=== PATIENT | female | born 1985 | race Caucasian/White ===

== ENCOUNTER 2016-11-11 12:36 | Emergency (ER) | payer OTHER ==
[~2016-11-11] VITALS: Ht 157.5 cm; Wt 68.9 kg
[~2016-11-11 12:36] MED LIST: /MOM400 GT; /ONDA4TA JT; ACET50TA PO; ANUS2.5C2 EXT; DOCU10ELUD PO; IBUP600T26 PO; MOM30SS PO; NASA55AE; PRENTAB74 PO; ROBISYP3 PO; SUDA30TA PO
[2016-11-11] MEDS ORDERED: traMADol 50 MG TAB PO ONE (15:00)
--- NOTE | 2016-11-11 16:17 | REP ---
LUMBAR SPINE COMPLETE: 11/11/2016. Comparison: CT abdomen and pelvis without contrast at [facility], 11/10/2016. Clinical history: Left flank pain for the past 3 days. Findings: Five views are provided. There is no scoliosis. Pedicles, spinous and transverse processes intact. SI joints, sacral ala and foramina unremarkable. Lower thoracic levels and visualized ribs intact. Facet arthropathy at L5-S1 is mild bilaterally. There is no spondylolysis or spondylolisthesis. Lateral view shows disc space narrowed at L5-S1. The other disc space heights are maintained. All vertebral body heights are maintained. Loss of lordosis is seen, which may reflect spasm. Impression: 1. Straightening of the spine may reflect some spasm, but there is no visible or displaced fracture, compression deformity, spondylolysis or spondylolisthesis. 2. Minor degenerative disc changes with slight disc space narrowing and marginal osteophytes at L5-S1. Signed by Jeremy Cartagena MD 11/11/2016 07:08 P
[2016-11-11] MEDS ORDERED: CYCL5TAB PO (16:24)
[2016-11-11] MEDS ORDERED: TRAM50TA2 PO (16:24)
[2016-11-11 16:25] VITALS: BP 129/67
== END 2016-11-11 16:31 | disposition home or self-care (01) ==
LOC: M ED 12:36
DX: M51.36 Other intervertebral disc degeneration, lumbar region (principal); G43.909 Migraine, unspecified, not intractable, without status migrainosus; F17.210 Nicotine dependence, cigarettes, uncomplicated

== ENCOUNTER → 2017-02-23 | Outpatient (CLI) | payer OTHER ==
[~2017-02-23] MED LIST changes: +CYCL5TAB PO; +TRAM50TA2 PO
--- NOTE | 2017-02-23 13:05 | REP ---
Clinical: Acute pharyngitis . Comparison: 01/10/2013 . Technique: PA and lateral. Findings: The mediastinum and cardiac silhouette are normal. The lung gomez are clear and without acute consolidation, effusion, or pneumothorax. The skeletal structures are intact and normal. Impression: 1. No acute cardiopulmonary process. Signed by Tomas Bynum MD 02/23/2017 12:57 P
== END ==
LOC: M LRY 12:15
PROVIDERS: ATTEND Nurse Practitioner Family
DX: J02.9 Acute pharyngitis, unspecified (principal)

== ENCOUNTER → 2017-02-23 | Outpatient (REF) | payer OTHER | LOC: M SFHCLERA 12:22 | PROVIDERS: ATTEND Nurse Practitioner Family | DX: J02.9 Acute pharyngitis, unspecified (principal) ==

== ENCOUNTER → 2018-03-20 | Outpatient (REF) | payer OTHER | LOC: M SFHCLERA 16:26 | DX: J02.9 Acute pharyngitis, unspecified (principal) ==

== ENCOUNTER → 2018-04-27 | Outpatient (CLI) | payer OTHER ==
--- NOTE | 2018-04-27 15:25 | REP ---
Chest two views HISTORY: Cough Comparison: 02/23/2017 The lungs are clear. The heart is normal in size. The pulmonary vasculature is normal in appearance. The bony structure is intact. IMPRESSION: No acute disease. Electronically Signed by Chato Coronel MD 04/27/2018 03:16 P
== END ==
LOC: M LRY 14:52
PROVIDERS: ATTEND Nurse Practitioner Family
DX: R05 Cough (principal)

== ENCOUNTER 2018-10-22 01:47 | Inpatient (IN) | payer MEDICAID, OTHER ==
[~2018-10-22] VITALS: Ht 157.5 cm; Wt 69.8 kg
[~2018-10-22 01:47] MED LIST changes: -/MOM400 GT; -/ONDA4TA JT; -ACET50TA PO; -DOCU10ELUD PO; +DOCU5LIQ PO; +MAPA500T17 PO; +MILK10SU GT; +ONDA-1 JT
[2018-10-22 02:19] LABS: HEMATOCRIT 38.3 % (36.0-47.0); HEMOGLOBIN 12.1 g/dl (12.0-15.5); MEAN CORPUSCULAR HEMOGLOBIN 27.6 pg (27.0-33.0); MEAN CORPUSCULAR HGB CONC 31.6 g/dl (32.0-36.5); MEAN CORPUSCULAR VOLUME 87.4 fl (80.0-96.0); PLATELET COUNT, AUTOMATED 285 10^3/uL (150-450); RED BLOOD COUNT 4.38 10^6/uL (4.00-5.40); WHITE BLOOD COUNT 9.7 10^3/uL (4.0-10.0)
[2018-10-22 02:48] LABS: HCG, SERUM QUALITATIVE NEGATIVE (NEGATIVE)
[2018-10-22 03:00] LABS: AMPHETAMINES LEVEL URINE NEGATIVE (NEGATIVE); BARBITURATES URINE NEGATIVE (NEGATIVE); BENZODIAZEPINES URINE NEGATIVE (NEGATIVE); CANNABINOIDS URINE NEGATIVE (NEGATIVE); COCAINE METABOLITE URINE NEGATIVE (NEGATIVE); METHADONE URINE NEGATIVE (NEGATIVE); OPIATES URINE NEGATIVE (NEGATIVE); PHENCYCLIDINE URINE NEGATIVE (NEGATIVE)
[2018-10-22 03:11] LABS: ACETAMINOPHEN LEVEL < 2.0 UG/ML (10.0-30.0); ALT/SGPT 21 U/L (12-78); BILIRUBIN,DIRECT 0.1 MG/DL (0.0-0.2); BILIRUBIN,TOTAL 0.2 MG/DL (0.2-1.0); BLOOD UREA NITROGEN 10 MG/DL (7-18); CALCIUM LEVEL 8.1 MG/DL (8.5-10.1); CARBON DIOXIDE LEVEL 21 MEQ/L (21-32); CHLORIDE LEVEL 113 MEQ/L (98-107); CREATININE FOR GFR 0.58 MG/DL (0.55-1.30); ETHYL ALCOHOL (ETHANOL) 0.075 % (0.000-0.010); GLOMERULAR FILTRATION RATE > 60.0 (>60); GLUCOSE, FASTING 86 MG/DL (70-100); POTASSIUM SERUM 3.7 MEQ/L (3.5-5.1); SODIUM LEVEL 143 MEQ/L (136-145); TOTAL PROTEIN 7.2 GM/DL (6.4-8.2)
[2018-10-22] MEDS ORDERED: LORazepam 2 MG TAB PO PRN (07:45)
[2018-10-22] MEDS: THIAMINE 100 MG TAB PO SCH ×2 (11:23→21:47)
[2018-10-22] MEDS: FOLIC ACID 1 MG TAB PO SCH (11:23)
[2018-10-22] MEDS: MULTIVITAMINS/MINERALS THERAP 1 TAB PO SCH (11:23)
[2018-10-22] MEDS ORDERED: OLANZapine ORAL DISINTEGRATING TAB 5MG PO PRN (11:45)
[2018-10-22] MEDS ORDERED: ACETAMINOPHEN TAB 650MG DOSE (2X325MG) PO PRN (11:45)
[2018-10-22] MEDS ORDERED: traZODone 50 MG TAB PO PRN (11:45)
[2018-10-22] MEDS ORDERED: MOM 30ML SUSPENSION UDC PO PRN (11:45)
[2018-10-22 15:01] VITALS: BP 140/70
[2018-10-23 06:45] VITALS: BP 117/64
[2018-10-23] MEDS: MULTIVITAMINS/MINERALS THERAP 1 TAB PO SCH (08:40)
[2018-10-23] MEDS: FOLIC ACID 1 MG TAB PO SCH (08:40)
[2018-10-23] MEDS: THIAMINE 100 MG TAB PO SCH ×2 (08:40→21:33)
[2018-10-23] MEDS ORDERED: FIORICET TAB PO PRN (11:30)
[2018-10-23] MEDS ORDERED: RIZATRIPTAN BENZOATE 10 MG TAB PO PRN (11:30)
--- NOTE | 2018-10-23 11:51 | MHHPEPDOC ---
[facility] History & Physical History and Physical DATE OF ADMISSION: Oct 22, 2018 at 11:34 New Patient Clare Angelo Age 33 Date of : 1985 Date of Service: 10/23/2018 Chief Complaint "My daughter made me come here." History of Present Illness The patient, a 33-year-old woman presented to [facility] after being brought in by police. She had been reportedly stating that she was planning to get hit by a car. She had been drinking the day in question and was fairly irritable upon initial presentation to the emergency room. Additionally, there was a notation of an argument with her live-in boyfriend of many years. When the patient was met with, she described that she felt her daughter had her admitted as she had been placing boundaries on her. She grossly denied any recent psychiatric symptoms and stated that she was upset with the situation. She described dept that she felt. Review Of Systems Depression: The patient denies any episodes of unprovoked depressed mood associated with neurovegetative symptoms lasting longer than 2 weeks with symptoms present nearly everyday. Anxiety: The patient denies any excessive worry associated with physical symptoms. They deny any experience of discreet panic in the past. Kathryn: The patient denies any episodes of euphoria/dysphoria associated with decreased need for sleep, hedonism, talkatively or impulsivity lasting longer than 5 days. Psychotic: The patient denies any experiences of auditory or visual hallucinations. They deny any episodes of paranoia or delusional thinking in the past Trauma: The patient denies any traumatic events associated with nightmares or intrusive thoughts. Borderline: The patient screens negative for borderline personality at this junction. Past Psychiatric History The patient reports a history of depression, treated with medications in the distant past, but no admissions or current followup. Denies any suicide attempts in the past. Allergies Please see below. Family Psychiatric History No reported medical problems. She additionally reports her mother was diagnosed with schizophrenia and her father had alcoholism. Social History The patient currently lives with her boyfriend of the last 12 years. She had gotten from her first . She has currently three daughters, two by her current boyfriend. 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 She describes going through high school without great difficulty. The patient grew up in a family that was fairly chaotic as her father was an alcoholic and her mother was schizophrenic. She stated she had a very poor relationship with her as she was paranoid a significant amount of time and she subsequently moved out of home at age 14. Denies any legal problems at this time. Substance Abuse History She reports some use of substances in her past, however, they were primarily experimental when she was in college. The patient denies excessive alcohol use and states that her drinking prior to admission was primarily intermittent. She describes smoking five or more cigarettes a day. She denies any use of illicit drugs. Medical History Patient has no significant past medical history. Mental Status Examination General: Well dressed with good hygiene Speech: Spontaneous and fluid Thought processes: Linear and logical MSK: Smooth and coordinated gait, no signs of tremors or involuntary orofacial movements Thought content: Future orientated Abstract reasoning, and computation: Intact Description of associations: Intact Description of abnormal or psychotic thoughts: Denies any suicidal or homicidal ideation. Denies any auditory or visual hallucinations. Does not appear to be responding to internal stimuli. Does not appear to be endorsing any bizarre or paranoid ideation. Judgment: fair Insight: fair Orientation: Alert and orientated 3 Cognition: Grossly normal Recent and remote memory: Intact Attention span and concentration: Intact Fund of knowledge: Adequate Mood: "okay" Affect: Euthymic with a full range Diagnoses Unspecified depressive disorder Alcohol use disorder, mild. Tobacco use disorder, moderate. Assessment and Plan The patient, a 33-year old woman presents to [facility] after reportedly making concerning statements. Her alcohol use is likely a provoking factor for her admission and her mood irritability. She does describe drinking fairly intensely in spurts consistent with binge drinking, which is likely provoking fair amount of mood irritability and depressive symptoms. She at this time has reported that she has no psychiatric symptoms and is not interested in medications. She states that she wishes to be discharged. We will hold patient until Thursday for discharge as no discharge planners are available. No need for medication at this time as highly likely to be substance- induced, which is recovering spontaneously. Continued CIWA as concerned if patient is limiting or minimizing her report of alcohol use. Disposition The patient will need further inpatient stay in order to allow her substance- induced depression to improve and to plan a safe discharge. Problem List 1. Substance use. 2. Depression. 3. Risk for suicide. Initial Treatment Plan 1. Patient was admitted on a 9.39 legal status. 2. Complete history was obtained. 3. With patients permission, family will be contacted and database will be expanded. 4. Patients medication regimen will be reviewed and changed accordingly. 5. Patient will be provided with protected environment. 6. Patient will be treated with individual, group, and milieu therapies. 7. Patient will receive supportive psych-education. 8. Discharge planning will commence immediately. 9. Outpatient follow-up treatment will be strongly recommended. 10. The initial treatment plan will focus initially on: Observation and collateral information. Estimated Length Of Stay 3 days. Time Spent 45 minutes. Thursday Vital Signs Vital Signs Date Time Temp Pulse Resp B/P (MAP) Pulse Ox O2 Delivery O2 Flow Rate FiO2 10/23/18 06:45 97.1 66 12 117/64 (81) 10/22/18 15:01 99 10/22/18 14:49 Room Air Medications No Active Prescriptions or Reported Meds Allergies Coded Allergies: Penicillins (Verified Allergy, Severe, THROAT CLOSES/RASH, 10/22/18) acetaminophen (Verified Adverse Reaction, Unknown, VOMITS, 10/22/18) oxycodone (Verified Adverse Reaction, Unknown, VOMITS, 10/22/18) KEITH FRANKEL DO Oct 23, 2018 11:51
--- NOTE | 2018-10-23 15:35 | HPE ---
DATE OF ADMISSION: 10/23/2018 CHIEF COMPLAINT: Depression. HISTORY OF PRESENT ILLNESS: This is a 33-year-old female with past medical history significant for migraines and depression, admitted to the inpatient mental health unit. Hospitalist was called to do a medical history and physical examination. Patient denies any changes in appetite, fever or chills, changes in vision, sore throat, cough, ear discharge, nasal congestion, neck pain, muscle pain, shortness of breath, chest pain, pressure or tightness, lightheadedness, dizziness, nausea, vomiting, diarrhea, abdominal pain, constipation, changes in weight, appetite, upper or lower extremity weakness. Patient is admitted into the inpatient mental health unit for severe depression under psychiatric management. She otherwise denies any dysuria, urgency or frequency, melena, bright red blood per rectum, black tarry stools. PAST MEDICAL HISTORY: 1. Migraines. 2. Depression. PAST SURGICAL HISTORY: 1. Three vaginal deliveries. 2. Tubal ligation. HOME MEDICATIONS: Please see below. ALLERGIES: PENICILLIN, ACETAMINOPHEN, OXYCODONE. SOCIAL HISTORY: Smokes one pack a day since the age of 18. Drinks alcohol 5-6 beers weekly. She owns her own business. FAMILY HISTORY: Father , unknown medical cause. Mother , age 53 with coronary artery disease (CAD), myocardial infarction ([place]). One sister with mental retardation and another with polysubstance abuse. REVIEW OF SYSTEMS: Per history of present illness (HPI). A 12-point systems review otherwise negative. PHYSICAL EXAMINATION: Temperature 97.1, pulse 66, respiratory rate 12, blood pressure 117/64, 99% on room air. GENERAL: Patient is awake, alert, oriented times three, answering questions appropriately, no conversational dyspnea or use of accessory respiratory muscles. HEENT: Pupils equally round, reactive to light and accommodation. Extraocular muscles intact. Anicteric sclerae. No jaundice. NECK: Supple. Full range of motion. No cervical lymphadenopathy, thyromegaly or jugular venous distention. No carotid bruits noted. LUNGS: Clear to auscultation. No wheezing, rales or rhonchi. HEART: S1, S2. Sinus rhythm. No murmurs, rubs or gallops. ABDOMEN: Soft, nontender, nondistended. Positive bowel sounds. No rebound, guarding or hepatosplenomegaly. EXTREMITIES: No clubbing, cyanosis or any pitting edema. LABORATORY DATA: 10/22/2018: White count 9.7, hemoglobin 12, hematocrit 38, platelet count 285. Sodium 143, potassium 3.7, chloride 113, bicarbonate 21, BUN 10, creatinine 0.58, glucose of 86. Total bilirubin 0.2, direct bilirubin 0.1, AST 14, ALT 21, alkaline phosphatase 55, total protein 7.2, albumin 4, albumin/globulin ratio 1.24. TSH 1.48. ASSESSMENT AND PLAN: A 33-year-old female with a history of migraines and depression admitted to inpatient mental health unit for treatment for depression. CURRENT ISSUES: 1. Migraines. Currently has no acute symptoms. As needed Fioricet, Tylenol and Maxalt, if needed. 2. Depression. Per primary team. Psychiatry to determine appropriate medications. 3. Deep venous thrombosis (DVT) prophylaxis. Patient is ambulatory. 4. History of alcohol use. On thiamine and folic acid and multivitamin. CIWA protocol with Ativan as needed. [facility]
[2018-10-23 17:40] VITALS: BP 117/64
[2018-10-23 18:00] VITALS: BP 113/59
[2018-10-23 20:21] VITALS: BP 113/59
[2018-10-24] MEDS: MULTIVITAMINS/MINERALS THERAP 1 TAB PO SCH (08:24)
[2018-10-24] MEDS: FOLIC ACID 1 MG TAB PO SCH (08:24)
[2018-10-24] MEDS: THIAMINE 100 MG TAB PO SCH ×2 (08:24→21:00)
[2018-10-24 12:09] VITALS: BP 113/59
--- NOTE | 2018-10-24 17:32 | MHIPNPDOC ---
[facility] Progress Note Progress Note Inpatient Progress Note Clare Angelo Age 33 Female Date of : 1985 Date of Service: 10/24/2018 History of Present Illness The patient, a 33-year-old woman presented to [facility] after being brought in by police. She had been reportedly stating that she was plan annelise to get hit by a car. She had been drinking the day in question and was fairly irritable upon initial presentation to the emergency room. Additionally, there was a notation of an argument with her live-in boyfriend of many years. Interval History The patient is met with today in the office. She describes that she has been doing well and coping well in the unit. She describes that she has been trying to "look at the brighter side of things. She describes no current depressive symptoms and no significant anxiety symptoms. She describes that she is very much interested in returning home. Staff note no issues overnight and she has been engaging in groups. Review Of Systems As above. Psychotherapy None on this visit. Vital Signs Reviewed. Mental Status Examination General: Well dressed with good hygiene Speech: Spontaneous and fluid Thought processes: Linear and logical MSK: Smooth and coordinated gait, no signs of tremors or involuntary orofacial movements Thought content: Future orientated Abstract reasoning, and computation: Intact Description of associations: Intact Description of abnormal or psychotic thoughts: Denies any suicidal or homicidal ideation. Denies any auditory or visual hallucinations. Does not appear to be responding to internal stimuli. Does not appear to be endorsing any bizarre or paranoid ideation. Judgment: fair Insight: fair Orientation: Alert and orientated 3 Cognition: Grossly normal Recent and remote memory: Intact Attention span and concentration: Intact Fund of knowledge: Adequate Mood: "okay" Affect: Euthymic with a full range Diagnoses Adjustment disorder, mild Alcohol use disorder, mild. Tobacco use disorder, moderate. Assessment and Plan The patient, a 33 year old woman with improving mood variation, is seen today. It is likely that her presentation was provoked by a combination of alcohol and a fairly intense argument. She reports no current depressive symptoms and has demonstrated no concerning ideation on the unit without medication which is highly suggestive of the above-mentioned diagnosis. She would likely do well in outpatient therapy and/or group therapy as she has elected against medications. Disposition Plan for discharge tomorrow. Time Spent 20 minutes [id number]. Thursday Vital Signs Vital Signs Date Time Temp Pulse Resp B/P (MAP) Pulse Ox O2 Delivery O2 Flow Rate FiO2 10/24/18 12:09 97.8 85 18 113/59 99 10/24/18 12:09 Room Air Current Medications Current Medications Acetaminophen (Tylenol Tab) 650 mg Q6HP PRN PO HEADACHE or DISCOMFORT; Start 10/22/18 at 11:45 Acetaminophen/ Butalbital/ Caffeine (Fioricet) 1 ea Q4HP PRN PO HEADACHE; Start 10/23/18 at 11:30 Folic Acid (Folic Acid) 1 mg DAILY PO Last administered on 10/24/18at 08:24; Start 10/22/18 at 09:00 Home Med (Med Rec Complete!) ASDIRECTED XX ; Start 10/22/18 at 09:15; Stop 10/22/18 at 09:15; Status DC Lorazepam (Ativan) 2 mg ASDIRECTED PRN PO SEE PROTOCOL; Start 10/22/18 at 07:45 Magnesium Hydroxide (Milk Of Magnesia) 30 ml DAILYPRN PRN PO CONSTIPATION; Start 10/22/18 at 11:45 Multivitamins (Theragram-M) 1 tab DAILY PO Last administered on 10/24/18at 08:24; Start 10/22/18 at 09:00 Olanzapine (ZyPREXA ZYDIS) 5 mg Q4HP PRN PO AGITATION; Start 10/22/18 at 11:45 Rizatriptan Benzoate (Maxalt) 5 mg Q2HP PRN PO MIGRAINE; Start 10/23/18 at 11:30 Thiamine HCl (Thiamine HCl) 100 mg BID PO Last administered on 10/24/18at 08:24; Start 10/22/18 at 09:00; Stop 10/24/18 at 21:01 Trazodone HCl (Desyrel) 50 mg QHSP PRN PO INSOMNIA; Start 10/22/18 at 11:45 Allergies Coded Allergies: Penicillins (Verified Allergy, Severe, THROAT CLOSES/RASH, 10/22/18) acetaminophen (Verified Adverse Reaction, Unknown, VOMITS, 10/22/18) oxycodone (Verified Adverse Reaction, Unknown, VOMITS, 10/22/18) KEITH FRANKEL DO Oct 24, 2018 17:32
[2018-10-24 18:00] VITALS: BP 112/69
--- NOTE | 2018-10-24 21:45 | IPNPDOC ---
Date Seen The patient was seen on 10/24/18. Progress Note SUBJECTIVE: Reading a book this afternoon. no c/o headaches, changes in appetite, n/v/abd pain, cp, sob. PHYSICAL EXAMINATION: VITALS: PLS SEE BELOW GENERAL: Patient is awake, alert, oriented times three, answering questions appropriately, no conversational dyspnea or use of accessory respiratory muscles. HEENT: Pupils equally round, reactive to light and accommodation. Extraocular muscles intact. Anicteric sclerae. No jaundice. NECK: Supple. Full range of motion. No cervical lymphadenopathy, thyromegaly or jugular venous distention. No carotid bruits noted. LUNGS: Clear to auscultation. No wheezing, rales or rhonchi. HEART: S1, S2. Sinus rhythm. No murmurs, rubs or gallops. ABDOMEN: Soft, nontender, nondistended. Positive bowel sounds. No rebound, guarding or hepatosplenomegaly. EXTREMITIES: No clubbing, cyanosis or any pitting edema. LABORATORY DATA: 10/22/2018: White count 9.7, hemoglobin 12, hematocrit 38, platelet count 285. Sodium 143, potassium 3.7, chloride 113, bicarbonate 21, BUN 10, creatinine 0.58, glucose of 86. Total bilirubin 0.2, direct bilirubin 0.1, AST 14, ALT 21, alkaline phosphatase 55, total protein 7.2, albumin 4, albumin/globulin ratio 1.24. TSH 1.48. ASSESSMENT AND PLAN: This is a 33-year-old female with past medical history significant for migraines and depression, admitted to the inpatient mental health unit. Hospitalist was called to do a medical history and physical examination. Patient denies any changes in appetite, fever or chills, changes in vision, sore throat, cough, ear discharge, nasal congestion, neck pain, muscle pain, shortness of breath, chest pain, pressure or tightness, lightheadedness, dizziness, nausea, vomiting, diarrhea, abdominal pain, constipation, changes in weight, appetite, upper or lower extremity weakness. Patient is admitted into the inpatient mental health unit for severe depression under psychiatric management. She otherwise denies any dysuria, urgency or frequency, melena, bright red blood per rectum, black tarry stools. CURRENT ISSUES: 1. Migraines. Currently has no acute symptoms. As needed Fioricet, Tylenol and Maxalt, if needed. 2. Depression. Per primary team. Psychiatry to determine appropriate medications. 3. Deep venous thrombosis (DVT) prophylaxis. Patient is ambulatory. 4. History of alcohol use. On thiamine and folic acid and multivitamin. CIWA protocol with Ativan as needed. VS, I&O, 24H, Fishbone Vital Signs/I&O Vital Signs Date Time Temp Pulse Resp B/P (MAP) Pulse Ox O2 Delivery O2 Flow Rate FiO2 10/23/18 20:21 97.9 86 16 113/59 99 10/23/18 12:38 Room Air MARIA E ARAYA MD Oct 24, 2018 06:15
[2018-10-25 06:50] VITALS: BP 112/58
[2018-10-25] MEDS: MULTIVITAMINS/MINERALS THERAP 1 TAB PO SCH (08:36)
[2018-10-25] MEDS: FOLIC ACID 1 MG TAB PO SCH (08:36)
[2018-10-25] MEDS ORDERED: NICO14DI6 TOP (13:17)
--- NOTE | 2018-10-25 15:34 | MHDSPDOC ---
[facility] Discharge Summary Discharge Summary DATE OF ADMISSION: Oct 22, 2018 at 11:34 DATE OF DISCHARGE: Oct 25, 2018 at 14:50 Discharge Clare Angelo Age 33 Female Date of : 1985 Date of Service: 10/25/2018 Diagnoses Adjustment disorder, mild. Alcohol use disorder. History of Present Illness The patient is a 33-year-old woman who presented to [facility] after being brought in by police. She had been reportedly stating that she was planning to get hit by a car. She had been drinking the day in question and was fairly irritable upon initial presentation to the emergency room. Additionally, there was a notation of an argument with her live-in boyfriend of many years. Consultants Involved Hospitalist/PCP screening Treatment and Progress On The Unit Patient was initially admitted to the unit after reportedly making suicidal statements to her daughter while intoxicated. Her blood alcohol on admission was close to the legal limit. She reported once she arrived to the unit that she had no depression or suicidality and adamantly denied the situation that lead her to the admission. Patient was observed for several days where she demonstrated no concerning ideation. She did not wish to try medications at that time. She didn't demostrate any overt signs of depression or severe anxiety/ She requested discha rge and was subsequently allowed to leave as she was not posing any risk to herself or others and making no concerning ideation. She was able to attend to her needs on the unit and did not demonstrate any threat to herself or others. Discharge Assessment Patient, a 33-year-old woman with a history of very limited involvement with psych, presents after reportedly making statements while intoxicated. She continues to adamantly deny any alcohol problems, depression, or suicide and thus her request to be discharged needs to be honored. She was discharged in an euthymic state to her family who was noticing no concerning thoughts. Mental Status Examination General: Well dressed with good hygiene Speech: Spontaneous and fluid Thought processes: Linear and logical MSK: Smooth and coordinated gait, no signs of tremors or involuntary orofacial movements Thought content: Future orientated Abstract reasoning, and computation: Intact Description of associations: Intact Description of abnormal or psychotic thoughts: Denies any suicidal or homicidal ideation. Denies any auditory or visual hallucinations. Does not appear to be responding to internal stimuli. Does not appear to be endorsing any bizarre or paranoid ideation. Judgment: fair Insight: fair Orientation: Alert and orientated 3 Cognition: Grossly normal Recent and remote memory: Intact Attention span and concentration: Intact Fund of knowledge: Adequate Mood: "okay" Affect: Euthymic with a full range Follow Up The social work team worked during the pre-discharge meeting in order to evaluate for further issues of lethality address them fully before discharge. They worked on safety planning with the patient's family members in order to ensure that the patient will have a safe and effective discharge. Patient was not started on any medications as she felt she did not have any significant depression or anxiety outside of situational. She did not demonstrate very good insight into her situation at times, but this appears to be a chronic trait. Time Spent The amount of time spent in the coordination of care for this patient was approximately 30 minutes. Thursday Vital Signs/I&Os Vital Signs Date Time Temp Pulse Resp B/P (MAP) Pulse Ox O2 Delivery O2 Flow Rate FiO2 10/25/18 06:50 97.5 79 12 112/58 (76) 10/24/18 12:09 99 10/24/18 12:09 Room Air Medications Scheduled Nicotine (Nicotine Patch) 14 Mg Patch.td24, 1 PATCH TOP DAILY for smoking cessation for 28 Days, #28 Allergies Coded Allergies: Penicillins (Verified Allergy, Severe, THROAT CLOSES/RASH, 10/22/18) acetaminophen (Verified Adverse Reaction, Unknown, VOMITS, 10/22/18) oxycodone (Verified Adverse Reaction, Unknown, VOMITS, 10/22/18) KEITH FRANKEL DO Oct 25, 2018 15:34
== END 2018-10-25 14:50 | disposition home or self-care (01) | DRG 755 ==
LOC: M ED 01:47 → M ED INP 11:34 → M PSY 14:55
PROVIDERS: ADMIT Psychiatry & Neurology Addiction Medicine; ATTEND Psychiatry & Neurology Addiction Medicine
DX: F43.20 Adjustment disorder, unspecified (principal); F10.10 Alcohol abuse, uncomplicated; F17.210 Nicotine dependence, cigarettes, uncomplicated; Z81.1 Family history of alcohol abuse and dependence; Z81.8 Family history of other mental and behavioral disorders; G43.909 Migraine, unspecified, not intractable, without status migrainosus; Z88.0 Allergy status to penicillin; Z88.5 Allergy status to narcotic agent; Z88.6 Allergy status to analgesic agent

== ENCOUNTER → 2019-02-03 | Outpatient (REF) | payer OTHER ==
[~2019-02-03] MED LIST changes: +BENZ200C70 PO; +IPRA0.00 NEB; +LEVA1TAB2 PO; +MUCI600T31 PO; +NICO14DI6 TOP; +PRED10TA2 PO; +ZITHTAB PO
== END ==
LOC: M SFHCLERA 13:43
PROVIDERS: ATTEND Nurse Practitioner Family
DX: J02.9 Acute pharyngitis, unspecified (principal)

== ENCOUNTER → 2019-02-03 | Outpatient (CLI) | payer MEDICAID, OTHER ==
--- NOTE | 2019-02-03 15:31 | REP ---
REASON: Dyspnea. COMPARISON: 04/27/2018. FINDINGS: The superior mediastinal structures are midline. The cardiac silhouette is unremarkable in size, shape, and position. The diaphragmatic surfaces of the lungs are regular, and the costophrenic angles are clear. The pulmonary gomez are clear. The imaged osseous structures are intact. IMPRESSION: There is no acute cardiopulmonary disease. Electronically Signed by Barry Ryan DO 02/03/2019 04:57 P
== END ==
LOC: M LRY 13:23
PROVIDERS: ATTEND Nurse Practitioner Family
DX: R06.02 Shortness of breath (principal)

== ENCOUNTER 2019-02-07 21:02 | Emergency (ER) | payer OTHER ==
[~2019-02-07] VITALS: Ht 157.5 cm; Wt 70.5 kg
[2019-02-07 21:02] VITALS: BP 143/84
[~2019-02-07 21:02] MED LIST changes: -BENZ200C70 PO; -IPRA0.00 NEB; -LEVA1TAB2 PO; -MUCI600T31 PO; -PRED10TA2 PO; -ZITHTAB PO
[2019-02-07] MEDS ORDERED: LEVA1TAB2 PO (21:47)
[2019-02-07] MEDS: IPRATROPIUM 0.5MG/ALBUTEROL 2.5MG INH SOL UD 3ML (DUONEB)(J7620) NEB SCH ×3 (22:35→22:58)
[2019-02-07] MEDS ORDERED: BENZONATATE 100 MG CAP PO ONE (22:45)
[2019-02-07] MEDS ORDERED: ZITHTAB PO (22:48)
[2019-02-07] MEDS ORDERED: BENZ200C70 PO (22:48)
[2019-02-07] MEDS ORDERED: IPRA0.00 NEB (22:48)
[2019-02-07] MEDS ORDERED: PRED10TA2 PO (22:48)
[2019-02-07] MEDS ORDERED: MUCI600T31 PO (22:48)
[2019-02-08] MEDS ORDERED: guaiFENesin ER 600 MG TAB PO SCH (09:00)
== END 2019-02-07 23:01 | disposition home or self-care (01) ==
LOC: M ED 21:02
DX: R51 Headache (principal); T36.95XA Adverse effect of unspecified systemic antibiotic, initial encounter; J20.9 Acute bronchitis, unspecified; F17.200 Nicotine dependence, unspecified, uncomplicated; Z98.51 Tubal ligation status; Z88.0 Allergy status to penicillin; Z88.5 Allergy status to narcotic agent

== ENCOUNTER 2020-12-19 09:50 | Emergency (ER) | payer OTHER ==
[~2020-12-19] VITALS: Ht 157.5 cm; Wt 66.4 kg
[2020-12-19 09:50] VITALS: BP 137/63
[~2020-12-19 09:50] MED LIST changes: +BENZ200C70 PO; +IPRA0.00 NEB; +LEVA1TAB2 PO; +MUCI600T31 PO; +PRED10TA2 PO; +ZITHTAB PO
[2020-12-19] MEDS ORDERED: NS 1,000 ML IV ONE (14:20)
[2020-12-19] MEDS ORDERED: ACETAMINOPHEN 325 MG TAB PO ONE (14:25)
[2020-12-19 15:04] LABS: BASO # 0.1 10^3/uL (0.0-0.2); BASO % 0.8 % (0.0-1.0); HEMATOCRIT 37.1 % (36.0-47.0); HEMOGLOBIN 12.1 g/dl (12.0-15.5); LYMPH # 0.4 10^3/uL (1.5-5.0); LYMPH % 4.8 % (24.0-44.0); MEAN CORPUSCULAR HEMOGLOBIN 27.5 pg (27.0-33.0); MEAN CORPUSCULAR HGB CONC 32.6 g/dl (32.0-36.5); MEAN CORPUSCULAR VOLUME 84.3 fl (80.0-96.0); MONO # 0.3 10^3/uL (0.0-0.8); MONO % 4.5 % (2.0-8.0); NEUTROPHILS # 6.7 10^3/uL (1.5-8.5); NEUTROPHILS % 89.4 % (36.0-66.0); PLATELET COUNT, AUTOMATED 229 10^3/uL (150-450); WHITE BLOOD COUNT 7.5 10^3/uL (4.0-10.0)
[2020-12-19 15:37] LABS: ALBUMIN 3.6 GM/DL (3.2-5.2); ALT/SGPT 27 U/L (12-78); BILIRUBIN,DIRECT 0.1 MG/DL (0.0-0.2); BILIRUBIN,TOTAL 0.5 MG/DL (0.2-1.0); BLOOD UREA NITROGEN 9 MG/DL (7-18); CALCIUM LEVEL 8.9 MG/DL (8.5-10.1); CARBON DIOXIDE LEVEL 23 MEQ/L (21-32); CHLORIDE LEVEL 110 MEQ/L (98-107); CREATININE FOR GFR 0.59 MG/DL (0.55-1.30); GLOMERULAR FILTRATION RATE > 60.0 (>60); GLUCOSE, FASTING 91 MG/DL (70-100); LIPASE 72 U/L (73-393); SODIUM LEVEL 138 MEQ/L (136-145); TOTAL PROTEIN 6.9 GM/DL (6.4-8.2)
[2020-12-19] MEDS ORDERED: ZOFR4TAB16 PO (15:45)
== END 2020-12-19 16:30 | disposition home or self-care (01) ==
LOC: M ED 09:50
DX: B34.9 Viral infection, unspecified (principal); R51.9 Headache, unspecified; E86.0 Dehydration; Z20.822 Contact with and (suspected) exposure to COVID-19; Z88.0 Allergy status to penicillin; Z88.5 Allergy status to narcotic agent
CPT/HCPCS: 80048; 80076; 83690; 85025; 99282; U0003